=== PATIENT | male | born 1950 | race Caucasian/White ===

== ENCOUNTER 2017-11-08 17:53 | Inpatient (IN) ==
--- NOTE | 2017-11-08 18:24 | Emergency Department Report ---
General Adult HPI - General Chief complaint: Seizure Stated complaint: Seizure Time Seen by Provider: 11/08/17 18:24 Source: patient, family, EMS Mode of arrival: EMS Limitations: no limitations - History of Present Illness HPI narrative: 67-year-old male presents to the emergency department with a chief complaint of a seizure. Patient has a history of seizure activity approximately 2-3 years ago. He was not started on any anti-convulsant medications at that time. Patient suffered a full body tonic-clonic seizure. His glucose was noted to be 56 mg/dL upon their arrival. 1 amp of D50 was given. Patient is not known to be diabetic. He was at the [facility] in [place] when the incident occurred. Patient had gotten up to get a cup of coffee when the incident occurred immediately prior to arrival to the ED. He denies any pain or discomfort at this time. Patient did loose control of his bladder and does have a small abrasion to his tongue. Repeat accu-check upon arrival to the ED was 88 mg/dL. - Related Data Home Medications Medication Instructions Recorded Confirmed Amlodipine Besylate [Norvasc] 10 mg PO DAILY 11/08/17 11/08/17 Aspirin [Aspirin EC] 81 mg PO DAILY 11/08/17 11/08/17 Cholecalciferol (Vitamin D3) 1 cap PO DAILY 11/08/17 11/08/17 [Vitamin D3] Cyanocobalamin (B-12) [Vit. B-12] 100 mcg PO DAILY 11/08/17 11/08/17 Folic Acid [Folate] 1 mg PO DAILY 11/08/17 11/08/17 Gabapentin 600 mg PO TID 11/08/17 11/08/17 Meloxicam 15 mg PO NOON 11/08/17 11/08/17 Naltrexone [Revia] 50 mg PO HS 11/08/17 11/08/17 Prazosin [Minipress] 1 mg PO BID 11/08/17 11/08/17 Sertraline [Zoloft] 100 mg PO HS 11/08/17 11/08/17 Trazodone [Desyrel] 100 mg PO HS 11/08/17 11/08/17 Allergies Allergy/AdvReac Type Severity Reaction Status Date / Time Penicillins Allergy Severe Rash Verified 11/08/17 18:17 Review of Systems Constitutional: Denies: fever, chills Eyes: Denies: eye pain, vision change ENT: Denies: ear pain, throat pain Cardiovascular: Denies: chest pain, palpitations Respiratory: Denies: cough, dyspnea Gastrointestinal: Denies: abdominal pain, nausea, vomiting, diarrhea Genitourinary: Denies: urgency, dysuria Musculoskeletal: Denies: back pain, arthralgia Integumentary: Denies: erythema, rash Neurological: Reports: other (Seizure activity. ). Denies: headache, numbness, paresthesias Psychiatric: Denies: anxiety, depression Endocrine: Denies: polydipsia, polyuria Hematological/Lymphatic: Denies: easy bleeding, lymphadenopathy Allergic/Immunologic: Denies: facial swelling, urticaria PFSH Patient Stated Medical History Hypertension Yes Depression Yes Post Traumatic Stress Disorder Yes Other Behavioral Health Yes: difficulty sleeping Hypertension, osteoarthritis, BPH, depression, Seizure activity Surgical History: Neck surgery, back surgery, ankle surgery Family History: Reviewed and Noncontributory. - Social History Substance use type: does not use Alcohol intake frequency: former alcohol drinker Physical Exam - Limitations Limitations: no limitations - General General appearance: alert, in no apparent distress - Normal Exams: Head:: Normocephalic without trauma Eyes:: Pupils are PERRLA w/ EOMI, No scleral icterus, irritation, or foreign bodies noted ENMT:: No facial trauma, nasal exudates, pharyngeal erythema, or exudates are noted Dental: No fractured, loose, or missing teeth noted Neck:: Full range of motion, without adenopathy, JVD, bruits or thyromegaly Chest/Respirations:: Clear all sandoval, with good airflow, and symmetry bilaterally Cardiovascular:: Regular rate and rhythm, without murmur or gallop, Pulses 2+ all extremities, capillary refill, <2 seconds all extremities Abdomen:: Bowel sounds positive, soft, non-tender, non-distended, no hepatosplenomegaly, masses or bruits noted Lymphatic:: No lymphadenopathy, or lymphedema noted Musculoskeletal:: No tenderness, or deformity noted, good range of motion, all extremities Integumentary:: No rashes, hives, or bruising noted, hair and nails, without abnormality Neurological:: Patient is alert (Alert and oriented x 3. CN 2-12 intact. Normal strength. Normal motor. Normal sensation. Normal speech. Normal coordination. Absent Babinski bilaterally. Reflexes 2/4 in all extremities. Gait not tested due to seizure precautions.), and oriented, cranial nerves, motor/sensory/cerebellar, exams w/o gross deficits, to observation Psychiatric:: Patient exhibits, appropriate attention, emotion and affect Course Vital Signs Temperature 96.2 F L 11/08/17 18:01 Pulse Rate 78 11/08/17 18:01 Respiratory Rate 24 11/08/17 18:01 Blood Pressure 138/78 11/08/17 18:01 Pulse Oximetry 97 11/08/17 18:01 Temperature 96.2 F L 11/08/17 18:01 Pulse Rate 65 11/08/17 22:51 Respiratory Rate 24 11/08/17 21:15 Blood Pressure 129/71 11/08/17 22:15 Pulse Oximetry 92 11/08/17 22:15 Medical Decision Making - [facility] Narrative Medical decision making narrative: Labs/imaging were discussed in detail with the patient and family and questions are answered. Patient is given 1 amp of D50 in the emergency department with improvement of symptoms. Patient is given Keppra 1 g intravenously. Patient is discussed with Dr. Clarke of Neurology who recommends admission to the hospital for neurologic consultation. Patient is started on D5 half-normal saline intravenously in the emergency department. Patient is admitted to the CCU in improved condition. He is admitted to the hospital for further evaluation and treatment. Patient is admitted to the hospital after discussion with Dr. Rubin who agrees to admit the patient to her service. She will perform her Neurology consultation of Dr. Marcus. No further orders from accepting or consulting physicians who were in agreement with the current plan of management. Patient is in agreement with the current plan of management. - Differential Diagnosis seizure, hypoglycemia, UTI, metabolic disorder - Lab Data Result diagrams: 11/08/17 18:08 11/08/17 18:08 Lab Results 11/08/17 11/08/17 11/08/17 Range/Units 18:06 18:08 18:08 WBC 10.0 (4.5-11.0) T/MM3 RBC 4.66 (4.50-5.90) M/MM3 Hgb 15.0 (13.5-17.5) GM/DL Hct 43.6 (41-53) % MCV 93.6 (80-100) UM3 MCH 32.2 (26-34) UUG MCHC 34.4 (31-37) GM/DL RDW Std Deviation 49.7 (36.9-50.2) FL Plt Count 204 (130-400) T/MM3 MPV 11.0 (9.4-12.4) UM3 Immature Gran % (Auto) 0.3 (0.0-0.5) % Neut % (Auto) 58.9 (33-66) % Lymph % (Auto) 30.4 (23-45) % [place] % (Auto) 7.9 (0-9.0) % Eos % (Auto) 1.9 (0-4) % Baso % (Auto) 0.6 (0-2) % Neut # (Auto) 5.9 (1.8-7.7) T/MM3 Lymph # (Auto) 3.0 (1-4.8) T/MM3 [place] # (Auto) 0.8 (0-0.8) T/MM3 Eos # (Auto) 0.2 (0-0.5) T/MM3 Baso # (Auto) 0.1 (0-0.2) T/MM3 Abs Immat Gran (auto) 0.03 (0.00-0.03) T/MM3 Turbidity < 20 (0-20) Sodium 141 (134-144) MEQ/L Potassium 3.6 (3.6-5) MEQ/L Chloride 100 (98-107) MEQ/L Carbon Dioxide 20 L (22-30) MEQ/L Anion Gap 21 H (5-15) MEQ/L BUN 8.0 L (9-20) MG/DL Creatinine 0.9 (0.8-1.5) MG/DL GFR Calculation 84 BUN/Creatinine Ratio 9 (6-26) RATIO Glucose 65 L (75-110) MG/DL Glucometer 88 (65-110) mg/dL Calculated Osmolality 267 (261-280) MOSM/KG Calcium 9.2 (8.4-10.2) MG/DL Icterus Index < 2 (0-7) Specimen Hemolysis < 15 (0-25) Ur Collection Type Urine Color (YELLOW) Urine Clarity Urine pH (5.0-8.0) Ur Specific Bonham (1.015-1.025) Urine Protein (NEGATIVE) Urine Glucose (UA) (NEGATIVE) Urine Ketones (NEGATIVE) Urine Occult Blood (NEGATIVE) Urine Nitrate (NEGATIVE) Urine Bilirubin (NEGATIVE) Urine Urobilinogen (NORMAL) EU/DL Ur Leukocyte Esterase (NEGATIVE) Urinalysis Comment 11/08/17 11/08/17 11/08/17 Range/Units 19:00 19:54 20:22 WBC (4.5-11.0) T/MM3 RBC (4.50-5.90) M/MM3 Hgb (13.5-17.5) GM/DL Hct (41-53) % MCV (80-100) UM3 MCH (26-34) UUG MCHC (31-37) GM/DL RDW Std Deviation (36.9-50.2) FL Plt Count (130-400) T/MM3 MPV (9.4-12.4) UM3 Immature Gran % (Auto) (0.0-0.5) % Neut % (Auto) (33-66) % Lymph % (Auto) (23-45) % [place] % (Auto) (0-9.0) % Eos % (Auto) (0-4) % Baso % (Auto) (0-2) % Neut # (Auto) (1.8-7.7) T/MM3 Lymph # (Auto) (1-4.8) T/MM3 [place] # (Auto) (0-0.8) T/MM3 Eos # (Auto) (0-0.5) T/MM3 Baso # (Auto) (0-0.2) T/MM3 Abs Immat Gran (auto) (0.00-0.03) T/MM3 Turbidity (0-20) Sodium (134-144) MEQ/L Potassium (3.6-5) MEQ/L Chloride (98-107) MEQ/L Carbon Dioxide (22-30) MEQ/L Anion Gap (5-15) MEQ/L BUN (9-20) MG/DL Creatinine (0.8-1.5) MG/DL GFR Calculation BUN/Creatinine Ratio (6-26) RATIO Glucose (75-110) MG/DL Glucometer 65 95 (65-110) mg/dL Calculated Osmolality (261-280) MOSM/KG Calcium (8.4-10.2) MG/DL Icterus Index (0-7) Specimen Hemolysis (0-25) Ur Collection Type Urine, void-cc/notcc Urine Color Yellow (YELLOW) Urine Clarity Clear Urine pH 6.5 (5.0-8.0) Ur Specific Bonham 1.010 L (1.015-1.025) Urine Protein Negative (NEGATIVE) Urine Glucose (UA) Negative (NEGATIVE) Urine Ketones Negative (NEGATIVE) Urine Occult Blood Negative (NEGATIVE) Urine Nitrate Negative (NEGATIVE) Urine Bilirubin Negative (NEGATIVE) Urine Urobilinogen 0.2 (NORMAL) EU/DL Ur Leukocyte Esterase Negative (NEGATIVE) Urinalysis Comment Microscopic not ind. 11/08/17 Range/Units 21:32 WBC (4.5-11.0) T/MM3 RBC (4.50-5.90) M/MM3 Hgb (13.5-17.5) GM/DL Hct (41-53) % MCV (80-100) UM3 MCH (26-34) UUG MCHC (31-37) GM/DL RDW Std Deviation (36.9-50.2) FL Plt Count (130-400) T/MM3 MPV (9.4-12.4) UM3 Immature Gran % (Auto) (0.0-0.5) % Neut % (Auto) (33-66) % Lymph % (Auto) (23-45) % [place] % (Auto) (0-9.0) % Eos % (Auto) (0-4) % Baso % (Auto) (0-2) % Neut # (Auto) (1.8-7.7) T/MM3 Lymph # (Auto) (1-4.8) T/MM3 [place] # (Auto) (0-0.8) T/MM3 Eos # (Auto) (0-0.5) T/MM3 Baso # (Auto) (0-0.2) T/MM3 Abs Immat Gran (auto) (0.00-0.03) T/MM3 Turbidity (0-20) Sodium (134-144) MEQ/L Potassium (3.6-5) MEQ/L Chloride (98-107) MEQ/L Carbon Dioxide (22-30) MEQ/L Anion Gap (5-15) MEQ/L BUN (9-20) MG/DL Creatinine (0.8-1.5) MG/DL GFR Calculation BUN/Creatinine Ratio (6-26) RATIO Glucose (75-110) MG/DL Glucometer 96 (65-110) mg/dL Calculated Osmolality (261-280) MOSM/KG Calcium (8.4-10.2) MG/DL Icterus Index (0-7) Specimen Hemolysis (0-25) Ur Collection Type Urine Color (YELLOW) Urine Clarity Urine pH (5.0-8.0) Ur Specific Bonham (1.015-1.025) Urine Protein (NEGATIVE) Urine Glucose (UA) (NEGATIVE) Urine Ketones (NEGATIVE) Urine Occult Blood (NEGATIVE) Urine Nitrate (NEGATIVE) Urine Bilirubin (NEGATIVE) Urine Urobilinogen (NORMAL) EU/DL Ur Leukocyte Esterase (NEGATIVE) Urinalysis Comment - Radiology Data CT HEAD - No acute processes. Disposition Clinical Impression: Witnessed seizure Disposition: 02 To [facility] Acute Care Condition: Stable Time of Disposition: 20:50 (Admit. Dr. Rubin. ) - Seen By: physician
[2017-11-08] MEDS ORDERED: LEVETIRACETAM INJ 1,000 MG in NS 100 ML IV ONE (18:30)
[2017-11-08] MEDS ORDERED: SALINE FLUSH 10ml SYRINGE IVF PRN (18:38)
[2017-11-08] MEDS ORDERED: NS 1,000 ML IV ONE (18:55)
[2017-11-08] MEDS ORDERED: DEXTROSE 50% INJ 50ml VIAL IV ONE (19:00)
[2017-11-08] MEDS: D5-1/2NS 1,000 ML IV SCH (19:57)
--- NOTE | 2017-11-08 22:48 | History & Physical Report ---
History of Present Illness Date: 11/08/17 Chief complaint: seizure HPI: 67 yo M with PMH of HTN and depression presented to the ED vis EMS after having a witnessed seizure. Patient's finance at bedside reports that patient was shaking all over his body and that it lasted 15-20 mins and reolved on it's own. He denies any aura or feeling weird before the event started. He does have PMH of seizure about 2-3 years ago, and does not take any antiseizure medicines. EMS was called and his glucose was noted to be 56, he was given 1 amp of D50 and taken to the ED. Patient has been asymptomatic since arrival to the ED. He denies any pain or discomfort at this time. Patient did loose control of his bladder and does have a small abrasion to his tongue. He was admitted for monitoring with Neurology consult in the AM. Review of Systems All systems PM: 10-point ROS was reviewed, no additional remarkable complaints except Past Medical History Hypertension Depression Seizure Surgical History: Neck surgery, back surgery, ankle surgery Family History Updates: reviewed - Social History Smoking status: Heavy tobacco smoker Medications Home Medications Medication Instructions Recorded Confirmed Type Amlodipine Besylate [Norvasc] 10 mg PO DAILY 11/08/17 11/08/17 History Aspirin [Aspirin EC] 81 mg PO DAILY 11/08/17 11/08/17 History Cholecalciferol (Vitamin D3) 1 cap PO DAILY 11/08/17 11/08/17 History [Vitamin D3] Cyanocobalamin (B-12) [Vit. B-12] 100 mcg PO DAILY 11/08/17 11/08/17 History Folic Acid [Folate] 1 mg PO DAILY 11/08/17 11/08/17 History Gabapentin 600 mg PO TID 11/08/17 11/08/17 History Meloxicam 15 mg PO NOON 11/08/17 11/08/17 History Naltrexone [Revia] 50 mg PO HS 11/08/17 11/08/17 History Prazosin [Minipress] 1 mg PO BID 11/08/17 11/08/17 History Sertraline [Zoloft] 100 mg PO HS 11/08/17 11/08/17 History Trazodone [Desyrel] 100 mg PO HS 11/08/17 11/08/17 History Allergies Allergy/AdvReac Type Severity Reaction Status Date / Time Penicillins Allergy Severe Rash Verified 11/08/17 18:17 Exam Vital Signs: Temperature 96.2 F L 11/08/17 18:01 Pulse Rate 68 11/08/17 22:15 Respiratory Rate 24 11/08/17 21:15 Blood Pressure 129/71 11/08/17 22:15 Pulse Oximetry 92 11/08/17 22:15 - Constitutional Present: well nourished, well developed - Routine Respiratory Exam Present: CTA bilaterally. Absent: wheezes - Routine Abdominal Exam Present: soft, normoactive bowel sounds, non distended. Absent: tenderness - Routine Skin Exam Present: dry, warm - Routine Neurological Exam Present: alert, oriented X3, CN II-XII intact - Routine Psychiatric Exam Present: normal affect Results - Labs CBC & Chem 7: 11/08/17 18:08 Assessment and Plan (1) Hypoglycemia Current visit: Yes Status: Acute (2) Witnessed seizure Current visit: Yes Status: Acute Assessment and Plan: patient admitted and placed on seizure precautions. Neurology to be consulted in AM. Patient placed on D5NS in the ED, will have nurse recheck blood sugar. Monitor for seizure activity overnight. Patient has been loaded with Keppra in the ED. Restart home meds, question possible poly pharmacy causing seizures. Check UDS. DVT Prophylaxis: SCD's Resuscitation Status: Full Code - Physician Narrative Narrative: Date: 11/08/17 Time: 2243 Hospital Course Summary Disclaimer: The visit summary below is not to be considered part of the above Progress Note.
[2017-11-08] MEDS: PRAZOSIN 1 MG PO SCH (23:22)
[2017-11-08] MEDS: --POM--SERTRALINE 100 MG TABLET PO SCH (23:23)
[2017-11-08] MEDS: TRAZODONE 100 MG PO SCH (23:23)
[2017-11-08] MEDS: NALTREXONE 50 MG PO SCH (23:23)
[2017-11-09] MEDS: D5-1/2NS 1,000 ML IV SCH ×2 (04:36→13:15)
--- NOTE | 2017-11-09 07:31 | CT Scan Report ---
Indication: seizure CT head/brain wo con: Comparison: None Technique: Nonenhanced axial imaging with dose reduction imaging technology and brain and bone window evaluation provided Findings: Patient demonstrates no acute intracranial findings. No suggestion of hemorrhage, midline shift, mass or other acute intracranial findings seen. Bone window evaluation showed clear sinuses and mastoids and no bony skull fracture. Impression: 1. No acute intracranial process noted. 2. Findings directed communicated to ordering clinician by the V rad service on a callback basis. .
[2017-11-09] MEDS: GABAPENTIN 300 MG CAPSULE PO SCH ×4 (09:00→21:32)
[2017-11-09] MEDS ORDERED: GABAPENTIN 300 MG CAPSULE PO SCH (09:00)
[2017-11-09] MEDS: ASPIRIN *EC* 81 MG TABLET PO SCH (09:01)
[2017-11-09] MEDS: PRAZOSIN 1 MG PO SCH ×2 (09:01→21:34)
[2017-11-09 10:00] VITALS: BMI 23.2
[2017-11-09] MEDS: MELOXICAM 15 MG PO SCH (13:06)
[2017-11-09] MEDS: --POM--AMLODIPINE 10 MG TABLET PO SCH (13:06)
--- NOTE | 2017-11-09 14:01 | Consultation ---
DATE OF CONSULTATION 11/09/[address] Rhoades PATIENT'S CHIEF COMPLAINT Seizure. HISTORY OF PRESENT ILLNESS The patient is a 67-year-old male with history of hypertension, depression and seizure-like activity. The patient was in his normal state of health staying at a hotel locally when he suddenly lost consciousness and started having diffuse body jerking. This lasted for about 10:15 minutes including postictal confusion and unresponsiveness. The patient had no aura like event prior to the seizure. He was not feeling sick prior to the seizure. The patient was found to have a glucose level of 56. He has been given D50 since then to improve on his sugar level and this has gradually increased to 65 earlier today. The patient had an another event 2 years ago during which he was sitting at the dining table when he suddenly became unresponsive and he had a few convulsions or increased body tone lasting for a few seconds at that event. He was not given any seizure medication and treated for syncope. The patient has a history of alcohol abuse. He has been sober for the last 9 months. He is having some mild coordination problem and neuropathy symptoms affecting his left arm mainly. PHYSICAL EXAMINATION The patient was awake, alert, oriented x 3. Pupils were round, reactive and equal. Extraocular muscles were intact. Visual field was full. Speech was fluent. Motor examination was 5/5. Sensory examination was limited in the left upper extremity, in the hand mainly. Deep tendon reflexes were 2-/4. Plantar reflexes were muted bilaterally. Coordination for [id number] was slightly dysmetric bilaterally. ASSESSMENT Myoclonic seizure most probably related to hypoglycemia. The patient had incontinence during the event and this lasted for a long period of time based on seizure length. He is now back to baseline. He has been having a low sugar level since the event and this has been slowly improving with IV fluid including D50. The patient had no other focal neurological deficit. He has some left arm numbness which can be related to carpal tunnel or other peripheral neuropathy problems. PLAN 1. Obtain an EEG to rule out seizure activity and assess seizure risk. 2. No need to start on antiseizure medication unless the patient has another seizure or if he has an abnormal EEG. 3. Monitor blood glucose closely and avoid further hypoglycemia a problem. 4. Consider obtaining an MRI of the brain if having worse symptoms in the future. PIERCED
--- NOTE | 2017-11-09 16:42 | Progress Note ---
Progress Note: Dr. Kaur's note reviewed. Mr. Andrews interviewed and examined. His fiance provide supplemental history. CC: Seizure/low blood sugar HPI: Mr. Andrews is a 67-year-old male traveling from [place] to [facility] to visit family. Yesterday he reports snacking on M&Ms and cheese crackers while driving, drinking DrLeonel Pepper and sweetened tea but having no meals during the day while driving. Shortly after checking in at a hotel in [place] the patient had a witnessed generalized tonic/clonic seizure in the lobby of hotel. His fiance was summoned by the hotel yardperson and witnessed the event. She describes generalized shaking of all 4 extremities, the patient was on the floor lying on his right side, did not respond to voice, his eyes appeared glassy and did not focus. She thinks the seizure activity lasted about 15 minutes and that when it terminated the patient remained poorly responsive, didn 't recognize people around him or make any sense. The first thing the patient recalls is being loaded into the ambulance. He is aware of several bruises and that he bumped his head during the event but otherwise feels that he's moving extremities normally today. Seizure activity was associated with loss of urinary continence but no bowel incontinence. A couple of years ago he had a brief seizure while seated at the kitchen table at home, he had vague awareness that he was in a fall to the left at that time. No medications were initiated following the event several years ago and in the intervening time he has not had any additional seizures. At the time of the seizure several years ago the patient was still drinking heavily but he has been alcohol free for almost one year. On initial evaluation by EMS blood sugar was 56 and was given 1 amp of D50 prior to presentation to the emergency room; in the ER blood sugar was 88 on arrival but subsequently dropped to 65 at which time D5 half-normal infusion was initiated and the patient was hospitalized for further evaluation after discussion with on-call neurology. Patient was given a gram of Keppra in the emergency room prior to hospitalization. PH/SH/FH: agree with that recorded above by Dr. Kaur with additional history of prior fusion of the cervical spine, low back surgery for sciatica, and ankle surgery for fracture. Family history noncontributory to presentation , social history positive for 2 pack a day tobacco use for many years, history of alcohol abuse but alcohol free for 11-1/2 months, and no history of illicit drug use. Patient would like his fiance Daly to be his alternate decision maker and he is a full code. His primary care physician is at the [facility] in [place]. ROS: 10 point review positive for bruising easily and patient reports he's starting to have trouble with his memory and is scheduled for further testing at the [facility] when he returns home. Patient reports he typically only eats one meal a day and had not eaten at the time of yesterday's seizure. Remainder of review is negative or as per history of present illness. EXAM: General-NAD, alert; 98.6 117/64 95% on room air HEENT-PERRL, EOMI without nystagmus, conjunctiva clear, sclera anicteric, conjugate gaze, facial structures symmetric, oropharynx clear, small abrasion/ laceration on tip of tongue, neck supple and without adenopathy Lungs-respirations nonlabored, good airflow, breath sounds clear, no wheezing present Cardiac-regular rhythm, S1-S2 Abd-soft, nontender, without palpable mass, bowel sounds present Ext-without edema Skin-3-4 cm contusion at the right adventism, small abrasions on the bridge of the nose, overlying the right zygoma, and in the right lateral eyebrow. There is a small V-shaped skin laceration on the right forearm Neuro-cranial nerves 3-12 intact except minor flattening of the right nasolabial fold at rest-moves normally with smile; motor tone normal, no tremors , power grossly intact upper and lower extremities; sensation intact to light touch/cold 4 extremities Psych-calm, cooperative DATA: White count 10.0-5.3, presenting hemoglobin 15.0 dropping to 12.7 with hydration. Electrolytes unremarkable although bicarbonate was slightly depressed at 20 on presentation. Blood sugars have ranged from 81-95 with D5 infusion running overnight. Urine drug screen negative CT head reviewed by myself revealing no acute intracranial process. A/P: Generalized tonic-clonic seizure Recurrent hypoglycemia Tobacco abuse, probable history COPD Hypertension Dehydration/hemoconcentration hx EtOH abuse Dr. Marcus consulted and recommends EEG-ordered. Prior seizure occurred while still drinking, may been related to alcohol or near syncopal event given prodrome patient describes. Nonetheless current event may represent a second seizure. If EEG demonstrates seizure focus Dr. Marcus has recommended initiation of medication. Patient reports he had an MRI done recently in [place] and thus do not plan on repeating imaging at this time. Blood sugar has remained unstable on D5 infusion; will titrate D5 off after patient has lunch to determine if blood sugar has stabilized. At present it's unclear if hypoglycemia preceded and caused seizure or was a result of seizure activity although the prolonged nature as suspicious for causative. Patient denies any past history of diabetes or reactive hypoglycemia; prolonged hypoglycemia atypical for reactive hypoglycemia as well. Will screen insulin level if recurrent hypoglycemia occurs. Converted to inpatient due to recurrent hypoglycemia demonstrated and requiring IV glucose. Continue home medications for blood pressure, alcohol dependence, and neuropathy as per home regimen.
[2017-11-09] MEDS: --POM--SERTRALINE 100 MG TABLET PO SCH (21:33)
[2017-11-09] MEDS: NALTREXONE 50 MG PO SCH (21:33)
[2017-11-09] MEDS: TRAZODONE 100 MG PO SCH (21:33)
[2017-11-10 00:06] VITALS: RESP 16
[2017-11-10] MEDS ORDERED: FALL RISK - PHARMACY CONSULT XX ONE (00:37)
[2017-11-10] MEDS: ASPIRIN *EC* 81 MG TABLET PO SCH (08:29)
[2017-11-10] MEDS: GABAPENTIN 300 MG CAPSULE PO SCH ×3 (08:29→14:33)
[2017-11-10] MEDS: PRAZOSIN 1 MG PO SCH (08:30)
[2017-11-10] MEDS ORDERED: CYANOCOBALAMIN (B-12) 100mcg TABLET PO SCH ×2 (09:00)
[2017-11-10] MEDS ORDERED: FOLIC ACID 1 MG TABLET PO SCH ×2 (09:00)
[2017-11-10] MEDS: --POM--AMLODIPINE 10 MG TABLET PO SCH (12:25)
[2017-11-10] MEDS: MELOXICAM 15 MG PO SCH (12:25)
--- NOTE | 2017-11-10 14:47 | Progress Note ---
DATE 11/10/[address] Rhoades and Dr. Stratton PATIENT'S CHIEF COMPLAINT Seizure. HISTORY OF PRESENT ILLNESS Patient continues to be seizure-free since admission. His sugar level has been increasing gradually and his last glucose level was 106. He had an EEG earlier today that showed no evidence of seizure activity and mild brain slowing due to drowsiness. The patient has been stable neurologically and he had no other neurological problem while admitted. Skin exam has been unremarkable. ASSESSMENT 1. Alteration of consciousness and myoclonic seizure associated with hypoglycemia. 2. No evidence of epileptiform activity or seizure activity on the EEG. PLAN 1. Optimize treatment for hypoglycemia and monitor glucose level closely. 2. There is no need for anti-seizure medication at present time. 3. The patient can be discharged and he will [facility] [place]. SADAF
[2017-11-10 15:15] VITALS: BP 137/77; PULSE 59; TEMP 97.4; O2SAT 95
--- NOTE | 2017-11-10 15:27 | Discharge Summary ---
Discharge Information Date of admission: 11/09/17 16:36 Anticipated date of discharge: 11/10/17 Attending Physician: Phill Stratton IV, MD - Discharge Diagnosis (1) Witnessed seizure Status: Acute (2) Hypoglycemia Status: Acute Generalized tonic-clonic seizure Recurrent hypoglycemia Tobacco abuse, probable history COPD Hypertension Dehydration/hemoconcentration hx EtOH abuse - Laboratory Labs: 11/10/17 05:10 11/10/17 05:10 Urine drug screen neg UA - neg - Radiology Radiology: Date of Exam: 11/08/17 Indication: seizure CT head/brain wo con: Findings: Patient demonstrates no acute intracranial findings. No suggestion of hemorrhage, midline shift, mass or other acute intracranial findings seen. Bone window evaluation showed clear sinuses and mastoids and no bony skull fracture. Impression: 1. No acute intracranial process noted. History of Present Illness HPI: 67 yo M with PMH of HTN and depression presented to the ED vis EMS after having a witnessed seizure. Patient's finance at bedside reports that patient was shaking all over his body and that it lasted 15-20 mins and resolved on its own. He denies any aura or feeling weird before the event started. He does have PMH of seizure about 2-3 years ago, and does not take any antiseizure medicines. EMS was called and his glucose was noted to be 56, he was given 1 amp of D50 and taken to the ED. Patient has been asymptomatic since arrival to the ED. He denies any pain or discomfort at this time. Patient did lose control of his bladder and does have a small abrasion to his tongue. He was admitted for monitoring with Neurology consult in the AM. Objective Vital signs: Temperature 98.0 F 11/10/17 07:31 Pulse Rate 64 11/10/17 07:31 Respiratory Rate 16 11/10/17 07:31 Blood Pressure 134/75 11/10/17 07:31 Pulse Oximetry 96 11/10/17 07:31 Height/Weight/BMI: Weight 80.5 kg - Constitutional Present: no acute distress, well nourished, well developed - Routine HEENT Exam Head: Present: normocephalic, atraumatic - Routine Respiratory Exam Present: CTA bilaterally. Absent: wheezes - Routine Cardiovascular Exam Present: RRR, no murmur - Routine Abdominal Exam Present: soft, non distended, non tender - Routine Extremities Exam Present: no edema, normal capillary refill - Routine Skin Exam Present: dry, warm - Routine Neurological Exam Present: alert, oriented X3 - Routine Lymphatic Exam Lymphatic: Absent: adenopathy - Routine Psychiatric Exam Present: normal affect, cooperative Hospital Course This is a general summary of the patient's hospital course. For more details refer to the complete medical record. Hospital course: Patient admitted and placed on seizure precautions. CT in ER neg. Neurology was consulted. Patient placed on D5NS overnight until BS's were stable. Patient was loaded with Keppra in the ED, but neuro saw pt and he had neg EEG, so no further seizure drugs were recommended. He had no further seizure activity or other concerns/complications. He felt fine during his stay and was DC'd with his fiance with instructions to obtain glucometer and check readings at least QID. Instructed to follow a diet with protein at meals and snacks. F-u with PCP when home. No driving for 6 mos from time of seizure. Time spent with patient: discharge greater than 30 minutes Resuscitation Status: Full Code Discharge Plan - Discharge Disposition Discharge Date: 11/10/17 Disposition: 01 Discharged Home, Self-Care *Condition: Stable Reason For Visit (Visit label in EMR): Seizure - Discharge Medications *Discharge Medications: Continue Meloxicam 15 mg PO NOON Trazodone [Desyrel] 100 mg PO HS Sertraline [Zoloft] 100 mg PO HS Naltrexone [Revia] 50 mg PO HS Cyanocobalamin (B-12) [Vit. B-12] 100 mcg PO DAILY Prazosin [Minipress] 1 mg PO BID Gabapentin 600 mg PO TID Folic Acid [Folate] 1 mg PO DAILY Aspirin [Aspirin EC] 81 mg PO DAILY Cholecalciferol (Vitamin D3) [Vitamin D3] 1 cap PO DAILY Amlodipine Besylate [Norvasc] 10 mg PO DAILY - Discharge Packet/Instructions *Diet: Be sure to eat protein at each meal. *Activity: As tolerated. NO driving for 6 months from the day of the seizure unless the laws are different than in [place]. *Pain Management/Treatment: n/a *Wound Care: n/a Additional Instructions: Follow up with your doctor when you get back to [place]. Obtain a glucometer at [facility] and check your blood sugars 2 hours after each meal and first thing in the morning before eating. If your blood sugar is less than 60, you need to drink orange juice and eat something with protein and check it again in 30 minutes to be sure it is coming up. Keep track of your blood sugars and take that record to your appointment with your doctor at home. *Expected Signs/Symptoms: n/a *Notify Physician if: You have further seizure activity or other unusual symptoms. *During Business Hours Contact: Your physician or the nearest ER. *After Business Hours Contact: Your physician or the nearest ER. *Pending Lab/Results: No Pending Lab - Referrals/Follow Up - Patient Handouts Patient Handouts: Non-diabetic Hypoglycemia (IP), Recurrent Seizures in Adults (GEN) - Dismissal Complete Discharge Instructions are:: Complete Physician Narrative - Narrative Physician: Phill Stratton MD Attestation Narrative: Date: 11/10/17 Time: 1616 Patient resting comfortably. No further seizure activity. He is frustrated about needing nursing supervision to do things. Blood sugars were in 70s overnight; he was asymptomatic. NAD. RRR. CTAB. s/nt/nd. ZAMUDIO, no focal deficit. EEG results d/w Dr. Marcus, appreciate his consult. With no seizure activity seen on EEG will not start on anti-seizure meds. Will consider hypoglycemia to have been cause. Patient and fiancee aware that he should be monitoring his blood sugars and should have a snack at bedtime. He is aware he should not be driving but will need to check in [place] for their restrictions. He will f/u with his PCP at [place] in [place].
== END 2017-11-10 16:45 | disposition home or self-care (01) | DRG 101 ==
LOC: CCU 17:53 → ED 17:53 → CCU 21:57 → SUATTDRO 22:01 → CCU 22:30 → SUATTDRO 11-09 16:36 → MED 11-09 21:00
PROVIDERS: ADMIT Internal Medicine; ATTEND Hospitalist